=== PATIENT | female | born 1965 | race Caucasian/White ===

== ENCOUNTER 2018-01-03 12:52 | Emergency (ER) | payer OTHER ==
[2018-01-03] MEDS ORDERED: predniSONE 20 MG TAB ONE (13:13)
== END 2018-01-03 13:17 | disposition home or self-care (01) ==
LOC: BURERS 12:52
DX: L50.9 Urticaria, unspecified (principal); E11.9 Type 2 diabetes mellitus without complications; I10 Essential (primary) hypertension; F41.9 Anxiety disorder, unspecified; F17.210 Nicotine dependence, cigarettes, uncomplicated; Z79.899 Other long term (current) drug therapy
CPT/HCPCS: 99282; J7506

== ENCOUNTER 2020-06-19 10:21 | Emergency (ER) | payer SELFPAY ==
[2020-06-19] MEDS ORDERED: traMADol HCl 50 MG TAB ONE (10:40)
== END 2020-06-19 11:45 | disposition home or self-care (01) ==
LOC: BURERS 10:21
DX: S82.831A Other fracture of upper and lower end of right fibula, initial encounter for closed fracture (principal); S82.51XA Displaced fracture of medial malleolus of right tibia, initial encounter for closed fracture; I10 Essential (primary) hypertension; E11.9 Type 2 diabetes mellitus without complications; J43.9 Emphysema, unspecified; F17.210 Nicotine dependence, cigarettes, uncomplicated; Z79.899 Other long term (current) drug therapy; W10.9XXA Fall (on) (from) unspecified stairs and steps, initial encounter
CPT/HCPCS: 99406